=== PATIENT | male | born 1995 | race Caucasian/White ===

== ENCOUNTER 2020-11-24 09:13 | Emergency (ER) | payer MEDICAID ==
[~2020-11-24] VITALS: Ht 167.6 cm; Wt 74.8 kg
[2020-11-24 09:15] VITALS: BP 116/76
--- NOTE | 2020-11-24 09:26 | NUR ---
25 Y/O M BIB SELF FROM HOME, PATIENT PRESENTS TO ED WITH L HAND LAC THAT HAPPENED THIS AM. PT STATES HE WAS DRILLING AND ONE OF THE DRILL BITS CAM OFF AND CUT HIS HAND. UPON INSPECTION, SKIN 1 CM LAC, NO ACTIVE BLEEDING OR DISCHARGE AT SITE. DENIES N/V/D; SKIN IS PINK/WARM/DRY; AAOX4 WITH EVEN AND STEADY GAIT; LUNGS CLEAR BL; HR EVEN AND REGULAR; PT DENIES ANY FEVER, CP, SOB, OR COUGH AT THIS TIME; PATIENT STATES PAIN OF 0/10 AT THIS TIME; VSS; PATIENT POSITIONED FOR COMFORT; HOB ELEVATED; BEDRAILS UP X2; BED DOWN. ER MD MADE AWARE OF PT STATUS. CAP REFILL <3, PT IS ABLE TO MOVE FINGERS AND SENSATION STILL INTACT. PMH: DENIES NKA
--- NOTE | 2020-11-24 09:48 | NUR ---
IRRIGATED PT LEFT HAND WITHOUT ANY ISSUES
[2020-11-24] MEDS ORDERED: LIDOCAINE MPF 1% 10 MG/ML VIAL INJ ONE (10:00)
[2020-11-24 10:50] VITALS: BP 116/76
--- NOTE | 2020-11-24 10:51 | NUR ---
Patient discharged with v/s stable. Written and verbal after care instructions given and explained regarding laceration care. Patient verbalized understanding. Ambulatory with steady gait. All questions addressed prior to discharge. Advised to follow up with PMD.
== END 2020-11-24 10:51 | disposition home or self-care (01) ==
LOC: MED 09:13
DX: S61.412A Laceration without foreign body of left hand, initial encounter (principal); W22.8XXA Striking against or struck by other objects, initial encounter; Y93.89 Activity, other specified; Y92.89 Other specified places as the place of occurrence of the external cause; Y99.8 Other external cause status
CPT/HCPCS: 12001; 90471; 90715; 99283; J2001

== ENCOUNTER 2020-12-03 09:01 | Emergency (ER) | payer MEDICAID ==
[~2020-12-03] VITALS: Ht 167.6 cm; Wt 74.8 kg
[2020-12-03 09:06] VITALS: BP 117/68
[2020-12-03 10:48] VITALS: BP 117/68
== END 2020-12-03 10:49 | disposition home or self-care (01) ==
LOC: MED 09:01
DX: S60.559A Superficial foreign body of unspecified hand, initial encounter (principal); S61.412D Laceration without foreign body of left hand, subsequent encounter; Z48.00 Encounter for change or removal of nonsurgical wound dressing; X58.XXXA Exposure to other specified factors, initial encounter; Y93.89 Activity, other specified; Y92.89 Other specified places as the place of occurrence of the external cause; Y99.8 Other external cause status
CPT/HCPCS: 73120; 99283

== ENCOUNTER 2020-12-30 05:00 | Emergency (ER) | payer MEDICAID ==
[~2020-12-30] VITALS: Ht 167.6 cm; Wt 70.3 kg
[2020-12-30 05:15] VITALS: BP 111/77
[2020-12-30] MEDS ORDERED: IBUP-2213 PO (06:24)
== END 2020-12-30 06:40 | disposition home or self-care (01) ==
LOC: MED 05:00
DX: S81.031A Puncture wound without foreign body, right knee, initial encounter (principal); W45.8XXA Other foreign body or object entering through skin, initial encounter; Y93.89 Activity, other specified; Y92.89 Other specified places as the place of occurrence of the external cause; Y99.8 Other external cause status
CPT/HCPCS: 73562; 99283